=== PATIENT | male | born 1990 | race Caucasian/White ===

== ENCOUNTER 2021-09-07 12:45 | Inpatient (IN) | payer OTHER ==
[~2021-09-07] VITALS: Ht 182.9 cm; Wt 95.2 kg
[2021-09-07 13:06] LABS: BASOPHILS ABSOLUTE AUTO 0.04 K/mm3 (0.00-0.23); BASOPHILS PERCENT AUTO 0 % (0-2); EOSINOPHILS ABSOLUTE AUTO 0.17 K/mm3 (0.00-0.68); EOSINOPHILS PERCENT AUTO 1 % (0-6); Hematocrit 49.8 % (37.0-53.0); Hemoglobin 16.9 g/dL (13.5-17.5); IMMATURE GRAN ABSOLUTE AUTO 0.04 K/mm3 (0.00-0.10); IMMATURE GRAN PERCENT AUTO 0 % (0-1); LYMPHOCYTES ABSOLUTE AUTO 1.83 K/mm3 (0.84-5.20); LYMPHOCYTES PERCENT AUTO 15 % (21-46); MONOCYTES ABSOLUTE AUTO 0.86 K/mm3 (0.16-1.47); MONOCYTES PERCENT AUTO 7 % (4-13); Mean Corpuscular HGB 28.4 pg (26.0-34.0); Mean Corpuscular HGB Conc 33.9 g/dL (31.5-36.5); Mean Corpuscular Volume 84 fL (80-100); Mean Platelet Volume 8.6 fL (9.1-12.4); NEUTROPHILS ABSOLUTE AUTO 9.08 K/mm3 (1.96-9.15); NEUTROPHILS PERCENT AUTO 76 % (41-73); Platelet Count 281 K/mm3 (150-400); RDW Coefficient Variation 12.4 % (11.7-14.2); RDW Standard Deviation 37.9 fL (35.1-46.3); Red Blood Cell Count 5.96 M/mm3 (4.30-5.90); White Blood Cell Count 12.02 K/mm3 (4.00-11.30)
[2021-09-07 13:25] LABS: Alanine Aminotransfer (ALT/SGP 18 U/L (12-78); Albumin, Blood 3.6 g/dL (3.4-5.0); Albumin/Globulin Ratio 0.8 (0.8-1.8); Alk Phos 94 U/L (50-136); Anion Gap 5 mmol/L (6-16); Aspartate Aminotrans (AST/SGOT 11 U/L (12-37); Bilirubin, Total 0.5 mg/dL (0.1-1.0); Blood Urea Nitrogen 13 mg/dL (8-24); CO2, Blood 26 mmol/L (21-32); Calcium, Blood 9.5 mg/dL (8.5-10.1); Chloride, Blood 107 mmol/L (98-108); Creatinine, Blood 0.87 mg/dL (0.60-1.20); Globulin, Blood 4.3 g/dL (2.2-4.0); Glomerular Filtration Rate >60 (60-); Glucose, Blood 101 mg/dL (70-99); Sodium, Blood 138 mmol/L (136-145); Total Protein, Blood 7.9 g/dL (6.4-8.2)
[2021-09-07 15:24] LABS: Source, Urine Clean Catch
[2021-09-07 15:27] LABS: Appearance, Urine Clear (Clear); Bilirubin, Urine Neg (Neg); Blood, Urine Neg (Neg); Color, Urine Yellow (P-Yellow); Glucose Qualitative, Urine Neg (Neg); Ketones, Urine Neg (Neg); Leukocyte Esterase, Urine Neg (Neg); Nitrite, Urine Neg (Neg); Protein, Urine Neg (Neg); Urobilinogen, Urine NORM (Normal)
--- NOTE | 2021-09-07 16:51 | NUR ---
PT ARRIVED TO UNIT FROM ED TRANSFERRED INDEPENDENTLY FROM WC TO BED. ORIENTED TO ROOM. PT REPORTS PAIN 5/10 W/MOVEMENT. MEDICATED PER ORDERS FOR PAIN. DENIES NEED FOR NAUSEA MEDS AT THIS TIME. PROVIDED SNACK AND WATER. DENIES ANY OTHER NEEDS AT THIS TIME. CALL LIGHT IN REACH.
--- NOTE | 2021-09-07 17:08 | NUR ---
SUMMARY NO ACUTE CHANGES T/O SHIFT. PERFORMED BBG SX THIS AM. EDUCATED FATHER ON BULB SUCTIONING PT PRIOR TO FEEDS AND WHEN CONGESTED. DR COLES CONTACTED CPS REGARDING PT'S GROWTH PERCENTILE AND HX OF NOT SHOWING UP TO APPOINTMENTS PER PCP'S REPORT. DR COLES DISCUSSED THIS FACT W/FATHER. MOTHER AT HOME W/PT'S SIBLING. GRANDFATHER IN ROOM W/FATHER AND PT AT THIS TIME.
[2021-09-08 04:29] LABS: BASOPHILS ABSOLUTE AUTO 0.05 K/mm3 (0.00-0.23); BASOPHILS PERCENT AUTO 0 % (0-2); EOSINOPHILS ABSOLUTE AUTO 0.23 K/mm3 (0.00-0.68); EOSINOPHILS PERCENT AUTO 2 % (0-6); Hematocrit 47.6 % (37.0-53.0); Hemoglobin 15.7 g/dL (13.5-17.5); IMMATURE GRAN ABSOLUTE AUTO 0.03 K/mm3 (0.00-0.10); IMMATURE GRAN PERCENT AUTO 0 % (0-1); LYMPHOCYTES ABSOLUTE AUTO 2.76 K/mm3 (0.84-5.20); LYMPHOCYTES PERCENT AUTO 24 % (21-46); MONOCYTES ABSOLUTE AUTO 1.14 K/mm3 (0.16-1.47); MONOCYTES PERCENT AUTO 10 % (4-13); Mean Corpuscular HGB 28.3 pg (26.0-34.0); Mean Corpuscular Volume 86 fL (80-100); Mean Platelet Volume 8.6 fL (9.1-12.4); NEUTROPHILS ABSOLUTE AUTO 7.42 K/mm3 (1.96-9.15); NEUTROPHILS PERCENT AUTO 64 % (41-73); Platelet Count 239 K/mm3 (150-400); RDW Coefficient Variation 12.4 % (11.7-14.2); RDW Standard Deviation 38.7 fL (35.1-46.3); Red Blood Cell Count 5.54 M/mm3 (4.30-5.90); White Blood Cell Count 11.63 K/mm3 (4.00-11.30)
--- NOTE | 2021-09-08 05:34 | NUR ---
SHIFT SUMMARY: PATIENT REFUSED TO WEAR HOSPITAL GOWN & SOCKS THROUGHOUT THE NIGHT, SLEPT WELL. PAIN MEDICINE GIVEN X 1 DOSE, NO COMPLAINTS OF PAIN AFTER. 2 DOSES OF IV ANTIBIOTIC GIVEN, PT. TOLERATED WELL.WILL CONTINUE TO MONITOR.
--- NOTE | 2021-09-08 16:57 | NUR ---
SUMMARY NO ACUTE CHANGES T/O SHIFT. PT INDEPENDENT IN ROOM. MEDICATED PER ORDERS FOR PAIN. TOLERATING PO. CALL LIGHT IN REACH.
--- NOTE | 2021-09-08 19:01 | NUR ---
REPORT GIVEN TO ONCOMING RN
--- NOTE | 2021-09-09 04:17 | NUR ---
SHIFT SUMMARY: PATIENT AOX4, WEARING HIS OWN CLOTHES HE REFUSED TO WEAR HOSPITAL GOWN. INDEPENDENT IN ROOM, EDUCATED TO CALL FOR HELP & DON'T FALL, CLWR, PT. VERBALIZED UNDERSATNDING. ANTIBIOTIC GIVEN,PT. TOLERATED WELL. COMPLAINTS OF PAIN TO LOWER ABDOMEN COVERED WITH PAIN MEDICINE, SEE EMAR. NO NEW UNUSUALITIES NOTED.PT. EATING & DRINKING WELL. SLEPT WELL LAST NIGHT.
[2021-09-09 04:31] LABS: BASOPHILS ABSOLUTE AUTO 0.05 K/mm3 (0.00-0.23); BASOPHILS PERCENT AUTO 1 % (0-2); EOSINOPHILS ABSOLUTE AUTO 0.25 K/mm3 (0.00-0.68); EOSINOPHILS PERCENT AUTO 3 % (0-6); Hematocrit 44.3 % (37.0-53.0); Hemoglobin 14.5 g/dL (13.5-17.5); IMMATURE GRAN ABSOLUTE AUTO 0.02 K/mm3 (0.00-0.10); IMMATURE GRAN PERCENT AUTO 0 % (0-1); LYMPHOCYTES ABSOLUTE AUTO 2.52 K/mm3 (0.84-5.20); LYMPHOCYTES PERCENT AUTO 27 % (21-46); MONOCYTES ABSOLUTE AUTO 0.87 K/mm3 (0.16-1.47); MONOCYTES PERCENT AUTO 9 % (4-13); Mean Corpuscular HGB 28.3 pg (26.0-34.0); Mean Corpuscular HGB Conc 32.7 g/dL (31.5-36.5); Mean Corpuscular Volume 87 fL (80-100); Mean Platelet Volume 8.8 fL (9.1-12.4); NEUTROPHILS PERCENT AUTO 60 % (41-73); Platelet Count 231 K/mm3 (150-400); RDW Coefficient Variation 12.3 % (11.7-14.2); RDW Standard Deviation 38.9 fL (35.1-46.3); Red Blood Cell Count 5.12 M/mm3 (4.30-5.90); White Blood Cell Count 9.31 K/mm3 (4.00-11.30)
[2021-09-09 04:46] LABS: International Normalized Ratio 1.08; Prothrombin Time Results 11.3 Sec (9.7-11.5)
--- NOTE | 2021-09-09 19:37 | NUR ---
SHIFT SUMMARY A&OX4, VSS, INDEPENDENT IN ROOM, VOIDING WELL, SHANNON PO, DENIES NEED FOR PAIN MEDICATION, ABX PER EMAR. REPORT PROVIDED TO USAMA GRACE.
--- NOTE | 2021-09-10 05:52 | NUR ---
SHIFT SUMMARY: PT. AOX4, COMPLAINTS OF TENDERNESS TO LOWER ABDOMEN WHICH WAS COVERED WITH PAIN MEDICINE, SLEPT WELL LAST NIGHT,REFUSED PAIN MEDICINE THIS MORNING.NO NEW UNUSUALITIES NOTED.
[2021-09-10] MEDS ORDERED: AMOCLA875 PO (14:05)
[2021-09-10] MEDS ORDERED: OXAYDO5 M1 PO (14:06)
--- NOTE | 2021-09-10 16:00 | NUR ---
DISCHARGE SUMMARY PT A&OX4, VSS, LEFT FLOOR WITH ALL PERSONAL POSSESSIONS, DC PACKET, 1 NARC SCRIPT AND 1 ABX SCRIPT, TO GO HOME WITH FAMILY. PT REP UNDERSTANDING DC INSTRUCTIONS INCLUDING FU APPT WITH SURGEON, ABX TREATMENT AND PAIN MANAGEMENT, AND WHEN TO CALL THE SURGEON. IV DC'D.
== END 2021-09-10 16:01 | disposition home or self-care (01) | DRG 373 ==
LOC: ER 12:45 → SURS 12:46 → ERHOLD 12:46 → SURS 16:28
PROVIDERS: Physician Assistant; ADMIT Surgery
DX: K35.33 Acute appendicitis with perforation, localized peritonitis, and gangrene, with abscess (principal); Z20.822 Contact with and (suspected) exposure to COVID-19
CPT/HCPCS: 36415; 74176; 74177; 80053; 81003; 83690; 85025; 85610; 96365; 99285-25; A9270; J0295; J1885; J7050; Q9967

== ENCOUNTER 2021-11-15 06:06 | Day surgery (SDC) | payer OTHER ==
[~2021-11-15] VITALS: Ht 182.9 cm; Wt 97.4 kg
[~2021-11-15 06:06] MED LIST: AMOCLA875 PO; OXAYDO5 M1 PO
--- NOTE | 2021-11-15 07:26 | NUR ---
[place] RING REMOVED AND PLACED IN LABLED BAG IN PATIENT BELONGINGS BAG
--- NOTE | 2021-11-15 07:27 | NUR ---
Ambulatory in Day Surgery. History, Chart, Medications and Allergies reviewed before start of procedure. Patient States Post-Procedure ride home has been arranged TO BE CALLED WHEN READY
--- NOTE | 2021-11-15 09:37 | NUR ---
Discharge instructions reviewed with patient. Patient verbalizes understanding. Copy given to patient to take home. Dressing to procedure site clean, dry, intact with no visible drainage, swelling, erythema or bruising noted.
--- NOTE | 2021-11-15 09:50 | NUR ---
Discharged via wheelchair to private car for ride home.
== END 2021-11-15 09:51 | disposition home or self-care (01) ==
LOC: ORSCMMR 06:06 → ORD 07:30 → ORSCMMR 09:51
PROVIDERS: Surgery
PROC: 0DTJ4ZZ Resection of Appendix, Percutaneous Endoscopic Approach (ICD-10-PCS; principal; 2021-11-15 07:30)
DX: K35.32 Acute appendicitis with perforation, localized peritonitis, and gangrene, without abscess (principal)
CPT/HCPCS: 88304; A9270; J0690; J1100; J1885; J2250; J2405; J2704; J3010; J7120